=== PATIENT | female | born 1985 | race Caucasian/White ===

== ENCOUNTER 2021-01-12 11:25 | Emergency (ER) | payer OTHER, BC ==
[2021-01-12 11:42] VITALS: BP 131/103
[2021-01-12] MEDS ORDERED: MOTRIN IB200 M1 PO (11:50)
[2021-01-12] MEDS ORDERED: DAILY-VITE1 EACH PO (11:50)
[2021-01-12] MEDS ORDERED: CYCLOBENZAPRINE10 M1 PO (12:01)
== END 2021-01-12 12:25 | disposition home or self-care (01) ==
LOC: ED 11:25
DX: S13.4XXA Sprain of ligaments of cervical spine, initial encounter (principal); V43.52XA Car driver injured in collision with other type car in traffic accident, initial encounter